=== PATIENT | female | born 1995 | race Asian ===

== ENCOUNTER 2020-01-24 08:58 | Outpatient (CLI) | payer OTHER ==
[~2020-01-24] VITALS: Ht 152.4 cm; Wt 74.5 kg
[2020-01-24 09:55] LABS: MICROSCOPIC INDICATED
== END 2020-01-24 11:22 | disposition home or self-care (01) ==
LOC: LDOP 08:58
PROVIDERS: ATTEND Obstetrics & Gynecology
DX: O26.893 Other specified pregnancy related conditions, third trimester (principal); R10.9 Unspecified abdominal pain; Z3A.38 38 weeks gestation of pregnancy
CPT/HCPCS: 59025; 81001; 87086

== ENCOUNTER 2020-01-31 04:58 | Inpatient (IN) | payer OTHER ==
[~2020-01-31] VITALS: Ht 165.1 cm; Wt 76.4 kg
[2020-01-31 05:05] VITALS: BP 113/74
[2020-01-31] MEDS ORDERED: ASCO500T8 PO (05:42)
[2020-01-31] MEDS ORDERED: Folic Acid PO (05:42)
[2020-01-31] MEDS ORDERED: Iron PO (05:42)
[2020-01-31] MEDS ORDERED: PREN1TAB60 PO (05:42)
[2020-01-31] MEDS ORDERED: NITR100C56 PO (05:42)
[2020-01-31] MEDS ORDERED: OXYTOCIN 30U/ 0.9% NaCL 500ML 500 ML IV ONE (06:01)
[2020-01-31] MEDS ORDERED: OXYTOCIN 30U/ 0.9% NaCL 500ML 500 ML IV PRN (06:01)
[2020-01-31] MEDS ORDERED: MISOPROSTOL 25 MCG TABLET ONE (06:12)
[2020-01-31] MEDS ORDERED: CALCIUM CARBONATE 500 MG TAB.CHEW PO PRN (06:30)
[2020-01-31] MEDS ORDERED: FENTANYL PF 100 MCG/2ML IVPush PRN (06:30)
[2020-01-31] MEDS ORDERED: TERBUTALINE 1 MG/ML, 1ML SQ PRN (06:30)
[2020-01-31] MEDS ORDERED: TERBUTALINE 1 MG/ML, 1ML IVPush PRN (06:30)
[2020-01-31] MEDS ORDERED: MISOPROSTOL 25 MCG TABLET VG PRN (06:30)
[2020-01-31] MEDS ORDERED: ONDANSETRON 2MG/ML, 2ML IVPush PRN ×2 (06:30→14:30)
[2020-01-31] MEDS ORDERED: FENTANYL PF 100 MCG/2ML IV PRN (06:30)
[2020-01-31] MEDS: LACTATED RINGERS 1,000 ML IV SCH ×5 (06:37→22:25)
[2020-01-31] MEDS ORDERED: MISOPROSTOL 200 MCG TABLET ONE (06:48)
[2020-01-31] MEDS ORDERED: LIDOCAINE 1%, 20ML ONE (06:48)
[2020-01-31 06:54] LABS: BASOPHILS # (AUTO) 0.01 x10^3/uL (0-0.1); BASOPHILS % (AUTO) 0 % (0-1); EOSINOPHILS # (AUTO) 0.12 x10^3/uL (0-0.4); EOSINOPHILS % (AUTO) 2 % (1-7); LYMPHOCYTES # (AUTO) 1.49 x10^3/uL (1-3.4); LYMPHOCYTES % (AUTO) 20 % (22-44); MD NO; MEAN CORPUSCULAR HEMOGLOBIN 28.4 pg (27.0-34.8); MEAN CORPUSCULAR HGB CONC 32.4 g/dL (32.4-35.8); MEAN PLATELET VOLUME 9.3 fL (7.4-10.4); MONOCYTES # (AUTO) 0.71 x10^3/uL (0.2-0.8); MONOCYTES % (AUTO) 9 % (2-9); NEUTROPHILS # (AUTO) 5.25 x10^3/uL (1.8-6.8); NEUTROPHILS % (AUTO) 69 % (42-75); PLATELET COUNT 161 x10^3/uL (130-400); RED BLOOD COUNT 4.52 x10^6/uL (3.82-5.3); RED CELL DISTRIBUTION WIDTH 14.4 % (9.6-15.2)
[2020-01-31] MEDS ORDERED: OXYTOCIN 30U/ 0.9% NaCL 500ML 500 ML ONE (09:42)
[2020-01-31] MEDS ORDERED: FENTANYL PF 100 MCG/2ML ONE (12:38)
[2020-01-31] MEDS ORDERED: ONDANSETRON 2MG/ML, 2ML ONE ×2 (12:58→18:38)
[2020-01-31] MEDS ORDERED: BUPIVACAINE 0.25% ONE (13:03)
[2020-01-31] MEDS ORDERED: FENTANYL/BUPIV./NS/PF 250 ML EPIDCONT ONE (13:03)
[2020-01-31] MEDS ORDERED: FENTANYL/BUPIV./NS/PF 250 ML EPIDCONT SCH (14:25)
[2020-01-31] MEDS ORDERED: NALOXONE 0.4 MG/ML, 1ML IVPush PRN (14:30)
[2020-01-31] MEDS ORDERED: EPHEDRINE 50 MG/ML, 1ML IVPush PRN (14:30)
[2020-01-31] MEDS ORDERED: DIPHENHYDRAMINE 50 MG/ML, 1ML IVPush PRN (14:30)
[2020-01-31] MEDS ORDERED: LACTATED RINGERS 1,000 ML IVBOLUS PRN (14:30)
[2020-01-31] MEDS ORDERED: HYDROcodone/APAP 5/325 TABLET PO PRN (15:30)
[2020-01-31] MEDS ORDERED: DIPH,PERTUSS(ACELL),TET VAC/PF NC IM-VACC PRN (15:30)
[2020-01-31] MEDS ORDERED: METHYLERGONOVINE 0.2 MG/ML IM PRN (15:30)
[2020-01-31] MEDS ORDERED: ONDANSETRON 2MG/ML, 2ML IV PRN (15:30)
[2020-01-31] MEDS ORDERED: BISACODYL 10 MG SUPP PR PRN (15:30)
[2020-01-31] MEDS ORDERED: GLYCERIN ADULT SUPP PR PRN (15:30)
[2020-01-31] MEDS ORDERED: MISOPROSTOL 200 MCG TABLET PR PRN (15:30)
[2020-01-31] MEDS ORDERED: SIMETHICONE 80 MG CHEW TAB PO PRN (15:30)
[2020-01-31] MEDS: D5%-LACTATED RINGERS 1,000 ML IV SCH ×2 (15:49→21:26)
[2020-01-31] MEDS ORDERED: METOCLOPRAMIDE 5 MG/ML, 2ML ONE (16:43)
[2020-02-01] MEDS: OXYTOCIN 30U/ 0.9% NaCL 500ML 500 ML IV SCH ×4 (01:15→21:15)
[2020-02-01] MEDS ORDERED: IBUPROFEN 800 MG TABLET ONE (01:32)
[2020-02-01] MEDS: IBUPROFEN 800 MG TABLET PO PRN ×3 (01:34→17:17)
[2020-02-01] MEDS ORDERED: OXYTOCIN 30U/ 0.9% NaCL 500ML 500 ML ONE (01:35)
[2020-02-01 02:47] VITALS: BP 122/62
[2020-02-01 07:15] VITALS: BP 105/71
[2020-02-01 07:29] LABS: MEAN CORPUSCULAR HEMOGLOBIN 28.1 pg (27.0-34.8); MEAN CORPUSCULAR HGB CONC 31.8 g/dL (32.4-35.8); MEAN PLATELET VOLUME 8.7 fL (7.4-10.4); PLATELET COUNT 158 x10^3/uL (130-400); RED BLOOD COUNT 3.92 x10^6/uL (3.82-5.3); RED CELL DISTRIBUTION WIDTH 14.5 % (9.6-15.2)
[2020-02-01 07:46] LABS: BASOPHILS # (AUTO) 0.05 x10^3/uL (0-0.1); BASOPHILS % (AUTO) 0 % (0-1); EOSINOPHILS # (AUTO) 0.02 x10^3/uL (0-0.4); EOSINOPHILS % (AUTO) 0 % (1-7); LYMPHOCYTES # (AUTO) 1.34 x10^3/uL (1-3.4); LYMPHOCYTES % (AUTO) 9 % (22-44); MD SCAN; MONOCYTES # (AUTO) 0.89 x10^3/uL (0.2-0.8); MONOCYTES % (AUTO) 6 % (2-9); NEUTROPHILS # (AUTO) 12.36 x10^3/uL (1.8-6.8); NEUTROPHILS % (AUTO) 84 % (42-75)
[2020-02-01] MEDS: DOCUSATE 100 MG CAPSULE PO PRN ×2 (07:58→17:17)
[2020-02-01] MEDS: PRENATAL VIT/IRON/FA 1 EACH TABLET PO SCH (07:59)
[2020-02-01] MEDS: HYDROcodone/APAP 5/325 TABLET PO PRN ×2 (10:53→17:18)
[2020-02-01 12:01] VITALS: BP 124/84
[2020-02-01 16:00] VITALS: BP 110/67
[2020-02-01 20:15] VITALS: BP_SYST 108; BP_SYST 135; BP_DIAS 72; BP_DIAS 89
[2020-02-02 00:06] VITALS: BP 108/69
[2020-02-02] MEDS: IBUPROFEN 800 MG TABLET PO PRN (06:05)
[2020-02-02] MEDS: HYDROcodone/APAP 5/325 TABLET PO PRN (06:05)
[2020-02-02] MEDS: OXYTOCIN 30U/ 0.9% NaCL 500ML 500 ML IV SCH (07:15)
[2020-02-02 07:30] VITALS: BP 118/79
[2020-02-02] MEDS: PRENATAL VIT/IRON/FA 1 EACH TABLET PO SCH (09:00)
== END 2020-02-02 12:05 | disposition home or self-care (01) | DRG 807 ==
LOC: LDIP 04:58 → 2NW 02-01 02:22
PROVIDERS: ADMIT Obstetrics & Gynecology; ATTEND Obstetrics & Gynecology
PROC: 0KQM0ZZ Repair Perineum Muscle, Open Approach (ICD-10-PCS; principal; 2020-01-31)
PROC: 10E0XZZ Delivery of Products of Conception, External Approach (ICD-10-PCS; 2020-01-31)
PROC: 10H07YZ Insertion of Other Device into Products of Conception, Via Natural or Artificial Opening (ICD-10-PCS; 2020-01-31)
PROC: 00HU33Z Insertion of Infusion Device into Spinal Canal, Percutaneous Approach (ICD-10-PCS; 2020-01-31)
PROC: 3E033VJ Introduction of Other Hormone into Peripheral Vein, Percutaneous Approach (ICD-10-PCS; 2020-01-31)
PROC: 10907ZC Drainage of Amniotic Fluid, Therapeutic from Products of Conception, Via Natural or Artificial Opening (ICD-10-PCS; 2020-01-31)
PROC: 3E0R3BZ Introduction of Anesthetic Agent into Spinal Canal, Percutaneous Approach (ICD-10-PCS; 2020-01-31)
DX: O70.1 Second degree perineal laceration during delivery (principal); Z37.0 Single live birth; Z3A.39 39 weeks gestation of pregnancy; Z20.828 Contact with and (suspected) exposure to other viral communicable diseases
CPT/HCPCS: 36415; J7121; 85025; 86592; 86850; 86900; 87635; G0378; J2405; J3010; J3490; J2590; J7120